=== PATIENT | female | born 1945 | race Caucasian/White ===

== ENCOUNTER → 2017-02-19 | Outpatient (CLI) | payer OTHER ==
[~2017-02-19] MED LIST: ASPIRIN EC325 M1 PO; ASPIRIN325 PO; CALCIUM 500 +1 EAC5 PO; CELEBREX 200 M200 M1 PO; CELEBREX 200 M200 MG PO; CEPHALEXIN 500500 M2 PO; COUMADIN 10MG T10 M1 PO; CRESTOR10 MG PO; CRESTOR20 MG PO; DILTIAZEM 24HR180 MG PO; DILTIAZEM 24HR360 MG PO; DILTIAZEM ER360 MG PO; FISH OIL 1,001000 MG PO; FLECAINIDE ACET50 M2 PO; GEMFIBROZIL 60600 MG PO; HYDROCHLOROTHIA25 M1 PO; HYDROCHLOROTHIA25 M2 PO; HYDROCODON-ACE1 EAC7 PO; LABETALOL 100100 MG PO; LISINOPRIL20 MG PO; LORTAB 5-500 T1 EAC1 PO; LOSARTAN-HCTZ1 EACH PO; MELOXICAM15 MG PO; MULTIVITAMINS; OCUVITE TABLET1 EAC1 PO; OMEPRAZOLE 20 M20 MG PO; OMEPRAZOLE20 M2 PO; OSTEO BI FLEX PO; POTASSIUM CHLO10 ME1 PO; PRADAXA150 MG PO; PRAVACHOL40 MG PO; PREDNISONE 5 MG5 M1 PO; PROVENTIL; PULMICORT FLE180 MCG IH; PULMICORT FLEX90 MCG IH; SPIRIVA INH; SYNTHROID100 MCG PO; SYNTHROID125 MCG PO; TAMBOCOR 100 M100 M1 PO; VIACTIV CAPLET1 EACH PO; VITAMIN D35000 UNI1 PO
== END ==
LOC: RAD 11:31
DX: M53.3 Sacrococcygeal disorders, not elsewhere classified (principal)

== ENCOUNTER → 2017-06-12 | Outpatient (CLI) | payer OTHER | LOC: RAD 06-03 13:31 | DX: R06.02 Shortness of breath (principal) ==

== ENCOUNTER → 2017-08-04 | Outpatient (CLI) | payer OTHER | LOC: MRI 09:05 | DX: S83.241A Other tear of medial meniscus, current injury, right knee, initial encounter (principal); M25.461 Effusion, right knee; X58.XXXA Exposure to other specified factors, initial encounter; Y93.89 Activity, other specified; Y92.89 Other specified places as the place of occurrence of the external cause; Y99.8 Other external cause status ==

== ENCOUNTER 2017-08-26 05:29 | Day surgery (SDC) | payer OTHER ==
[~2017-08-26] VITALS: Ht 154.9 cm; Wt 93.0 kg
--- NOTE | ~2017-08-26 | S ---
[facility] [place] [address] SURGICAL PATH RPT PROCEDURE Name: SHAWNEE AVALOS Room #: DEP [facility].R.#: [id number] Admission: 08/26/17 Date of : 43 Discharge: 08/26/17 Report #: [id number] Path Case #: [id number] PATHOLOGY REPORT COLLECTION DATE: 08/26/2017 RECEIVED DATE: 08/26/2017 SUBMITTING PHYS: Dr. Darrell Carter OTHER PHYS: Dr. Hector Hurd SPECIMEN(S) RECEIVED: A.Left chest mass * * * * * * * * * * * * FINAL DIAGNOSIS: Left chest wall mass, excision: - Mature adipose tissue compatible with a lipoma. (IUV:db; 08/28/2017) PATHOLOGIST: Elvi Hallman M.D. REPORT ELECTRONICALLY SIGNED BY: Elvi Hallman M.D. DATE/TIME: 08/28/2017 14:34 * * * * * * * * * * * * GROSS PATHOLOGY: The specimen is received in formalin labeled "April, left chest mass". Received are multiple segments of bright yellow lobulated tissue measuring 6.5 x 4.7 x 2.9 cm in aggregate dimensions. Sectioning reveals bright yellow, lobulated cut surfaces with no grossly distinct nodules or lesions. The specimen is submitted representatively in cassette A1. (CAA; 08/27/2017) CLINICAL HISTORY: Left chest mass INITIAL CPT CODE(S): 49583 Professional services performed by [facility] at [facility] [address] [place] [address] Technical services performed by [facility] at [address] [place] [id number]. [facility] [address] [place] [address] SURGICAL PATH RPT PROCEDURE Name: SHAWNEE AVALOS Room #: DEP [facility] [place]#: [id number] Admission: 08/26/17 Date of : 43 Discharge: 08/26/17 Report #: [id number] Path Case #: [id number] [facility] [address] [place] [id number] PHONE: [phone] DIRECTOR: Melo Stevens M.D. * * * END OF REPORT * * *
--- NOTE | ~2017-08-26 | O ---
[facility] [place] [address] OPERATIVE REPORT Name: SHAWNEE AVALOS Room #: DEP [facility]..#: [id number] Admission: 08/26/17 Attend Phys: Darrell Carter MD Discharge: 08/26/17 Date of : 43 Report #: [id number] THIS REPORT FOR: //name// CC: Darrell Hurd MD PREOPERATIVE DIAGNOSIS: Mass, left lower chest. POSTOPERATIVE DIAGNOSIS: Mass/lipoma left lower chest, symptomatic. PROCEDURES PERFORMED: Excision of left lower chest mass/lipoma. ANESTHESIA: IV sedation, local, 0.25% Marcaine. SURGEON: Darrell Carter MD COMPLICATIONS: None. ESTIMATED BLOOD LOSS: 5 mL. PROCEDURE NOTE: With the patient in the supine position, the left chest is prepped and draped in sterile fashion. IV sedation was given. IV preoperative antibiotic was given. Timeout was performed. 0.25% Marcaine was used to anesthetize the skin and subcutaneous tissue. A transverse incision slightly oblique was made over the mass. This is about a 4 cm incision. After incising through the skin and subcutaneous tissue, the superficial fascia was entered. There is prominent fatty tissue underneath this fascia. This was dissected free. In the lower aspect from the incision, there was a distinct lobulated fat present. I also dissected superiorly to remove that area also. This also contained a distinct lumpy fatty tissue. The total area is about 4 cm. There is no remaining prominent fatty tissue identified. Irrigation was performed. The subcutaneous tissue was closed with 3-0 PDS and the skin was closed with 5-0 PDS. Steri-Strip, 4 x 4 and OpSite used for dressing. The patient tolerated the procedure well. By: [id number] Darrell Carter MD /nt
[~2017-08-26 05:29] MED LIST changes: +CO Q-10100 MG PO; +LEVALBUTER1.25 MG/0. INH; +OSTEO BI-FLEX1 EAC1 PO; +SYNTHROID88 MCG PO; +[UNRECOGNIZED DRUG - OTHER] PO
[2017-08-26 11:33] LABS: HEMATOCRIT 41.2 % (37.0-47.0); HEMOGLOBIN 13.8 gm/dL (12.0-15.0)
[2017-08-26 11:59] LABS: CALCIUM 9.3 mg/dL (8.5-10.1); CREATININE 1.4 mg/dL (0.6-1.0); POTASSIUM 4.7 mmol/L (3.5-5.1)
[2017-08-26 12:00] VITALS: BP 134/94
[2017-08-26] MEDS ORDERED: NORCO 5-325 TA1 EACH PO (13:30)
== END 2017-08-26 14:15 | disposition home or self-care (01) ==
LOC: TBA 05:29 → OR 05:29
PROVIDERS: Surgery
DX: D17.1 Benign lipomatous neoplasm of skin and subcutaneous tissue of trunk (principal); J44.9 Chronic obstructive pulmonary disease, unspecified; I10 Essential (primary) hypertension; I48.91 Unspecified atrial fibrillation; K21.9 Gastro-esophageal reflux disease without esophagitis; Z95.0 Presence of cardiac pacemaker; Z85.828 Personal history of other malignant neoplasm of skin; Z85.118 Personal history of other malignant neoplasm of bronchus and lung; Z96.652 Presence of left artificial knee joint; Z98.41 Cataract extraction status, right eye; Z87.891 Personal history of nicotine dependence; Z98.42 Cataract extraction status, left eye; Z98.890 Other specified postprocedural states; Z88.0 Allergy status to penicillin; Z88.8 Allergy status to other drugs, medicaments and biological substances; Z79.899 Other long term (current) drug therapy; Z79.82 Long term (current) use of aspirin
CPT/HCPCS: 50010; 50101; 50386; 56524; 56525; 62110; 62850; 70005

== ENCOUNTER → 2018-04-13 | Outpatient (CLI) | payer OTHER ==
[~2018-04-13] MED LIST changes: +NORCO 5-325 TA1 EACH PO
[2018-04-13 08:19] LABS: HEMATOCRIT 42.2 % (37.0-47.0); HEMOGLOBIN 14.2 gm/dL (12.0-15.0); MCH 30.3 pg (26.0-34.0); MCHC 33.7 g/dL (28.0-37.0); MCV 89.9 fL (80.0-100.0); RBC 4.7 mil/uL (4.20-5.00); RDW 14.2 % (10.5-14.5); WBC 6.1 thou/uL (4.0-11.0)
[2018-04-13 08:50] LABS: ALBUMIN 3.9 g/dL (3.4-5.0); CALCIUM 8.9 mg/dL (8.5-10.1); CREATININE 1.4 mg/dL (0.6-1.0); TOTAL BILIRUBIN 0.5 mg/dL (<0.1-1.0); TOTAL PROTEIN 6.6 g/dL (6.4-8.2)
== END ==
LOC: CAT 07:59
PROVIDERS: Internal Medicine Cardiovascular Disease
DX: I48.91 Unspecified atrial fibrillation (principal); I25.10 Atherosclerotic heart disease of native coronary artery without angina pectoris; I71.2 Thoracic aortic aneurysm, without rupture; M47.894 Other spondylosis, thoracic region

== ENCOUNTER 2018-04-20 06:49 | Observation (INO) | payer OTHER ==
[~2018-04-20] VITALS: Ht 154.9 cm; Wt 102.5 kg
--- NOTE | ~2018-04-20 | D ---
[facility] [place] [address] DISCHARGE SUMMARY Name: SHAWNEE AVALOS Room #: 200-I [facility] Mohit Talamantes#: [id number] Admission: 04/20/18 Attend Phys: Pradip De Leon MD Discharge: 04/21/18 Date of : 43 Report #: [id number] THIS REPORT FOR: //name// CC: Pradip Hurd DISCHARGE DIAGNOSES: 1. Paroxysmal atrial fibrillation. 2. Sick sinus syndrome. 3. Prior lung cancer. HISTORY: The patient is a 73-year-old with a history of paroxysmal atrial fibrillation. A few years ago, I had a CT scan performed on her in anticipation of an AFib ablation and I diagnosed her with lung cancer. She underwent surgical resection of her left lower lobe by CT surgeon at [facility] and at that time, she also underwent left atrial appendage ligation. Postoperative course was complicated by paroxysmal AFib and sick sinus syndrome and therefore, she underwent pacemaker implantation at that time. Her AFib has worsened over the past year to year and a half despite flecainide therapy and therefore she is here for an ablation. She underwent successful AFib ablation with isolation of her pulmonary veins. There were no intraprocedural complications. HOSPITAL COURSE: The patient was monitored in the CCU overnight. On the day of discharge, she was doing well without any complaints. She denied chest pain, shortness of breath, fevers or chills. PHYSICAL EXAMINATION: GENERAL: She was in no acute distress. HEART: Regular rate and rhythm. No murmurs, rubs, gallops. LUNGS: Clear to auscultation bilaterally. ABDOMEN: Soft, nontender. EXTREMITIES: There is no clubbing, cyanosis, edema and her groin was healing nicely. On telemetry, she remained in atrial paced rhythm with no evidence of AFib. As such, she was deemed stable for discharge home. She will go home on her same home medications, which include flecainide 150 mg a day, beta-moraima, diltiazem and Pradaxa therapy. I will see her back in 3 months. Discharge instructions were reviewed. <ELECTRONICALLY SIGNED> By: Pradip De Leon MD 04/23/18 0853 [id number] Pradip De Leon MD /nt
--- NOTE | ~2018-04-20 | P ---
[facility] [place] [address] PROCEDURE REPORT Name: SHAWNEE AVALOS Room #: 200-I [facility] Mohit Talamantes#: [id number] Admission: 04/20/18 Attend Phys: Pradip De Leon MD Discharge: 04/21/18 Date of : 43 Report #: [id number] THIS REPORT FOR: //name// CC: Pradip Hyman Hector Vannessa DATE OF SERVICE: 04/20/2018 PREOPERATIVE DIAGNOSES: 1. Paroxysmal atrial fibrillation. 2. Sick sinus syndrome. 3. Prior lung cancer status post resection. PROCEDURES PERFORMED: 1. Atrial fibrillation, CPT code 42517. 2. 3D mapping, CPT code 94672. 3. Intracardiac echo, CPT code 52190. 4. Pacemaker reprogramming, CPT code 20755. HISTORY: The patient is a 73-year-old with a history of COPD and paroxysmal atrial fibrillation. Several years ago, in preparation for an AFib ablation, she underwent a CT scan, which showed evidence of lung cancer. She underwent successful surgical resection of her left lower lobe and at that time she underwent left atrial appendage ligation. This was performed at [facility] and she did have postoperative atrial fibrillation and sick sinus syndrome and therefore underwent a dual chamber [employer] pacemaker implantation. Over the past year, her atrial fibrillation has worsened despite increasing doses of flecainide and therefore she is here for an AFib ablation. ANESTHESIA: The patient underwent general anesthesia with no anesthesia related complications. DESCRIPTION OF PROCEDURE: The patient underwent informed consent. We discussed the details of the procedure including the risks, which include but are not limited to bleeding, vascular damage, cardiac perforation as well as stroke or OK. She understood these risks and is willing to proceed. As such, she was brought to the EP laboratory in a fasting and sedated state, prepped and draped in a sterile fashion, and she was placed under general anesthesia. Her pacemaker was interrogated and reprogrammed for the ablation. Of note, I did repeat a cardiac CT scan prior to this ablation, which did show evidence of the left atrial appendage ligation. 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 As such, I obtained access to the right femoral vein x 3, placing an 8-Peruvian, 9-Peruvian and 7-Peruvian short sheath under modified Seldinger technique and under fluoroscopy I placed a decapolar catheter easily in the coronary sinus and an ICE catheter into the [facility] [address] [place] [address] PROCEDURE REPORT Name: SHAWNEE AVALOS Room #: 200-I [facility] Mohit Talamantes#: [id number] Admission: 04/20/18 Attend Phys: Pradip De Leon MD Discharge: 04/21/18 Date of : 43 Report #: [id number] right atrium. Next, using intracardiac ultrasound, I created a 3D geometry of the left atrium using [employer] and then I merged this with the cardiac CT scan. As noted on the CT scan, there was a small stump left for the left inferior pulmonary vein. Next, the patient was systemically heparinized and I performed a transseptal using an SL1 sheath and a Belmont needle. This was straightforward and I crossed easily. Next, I placed a Lasso and took baseline measurements of the 4 pulmonary veins including the left inferior vein stump. Next, I exchanged the SL1 sheath for the cryo sheath and placed the cryoballoon into the left atrium. I performed 2 freezes in the left superior pulmonary vein. The left superior pulmonary vein isolated after the second freeze at 82 seconds. I then turned my attention to the left inferior pulmonary vein stump. There were some atrial signals at this site, so I performed initially 3 ablation lesions at 240 milliseconds. There was diminishment of these electrical signals, but it did not appear that it was completely isolated. I then turned my attention to the right superior pulmonary vein and I performed two 4-minute freezes and this vein was isolated. I then turned my attention to the right inferior pulmonary vein and I performed a single 180-second freeze. This vein isolated within 38 seconds of the first freeze. Once again, I re-interrogated all the veins and they remained isolated. I performed voltage mapping and all the veins appeared to be isolated. I did do an additional 2 freezes in the left inferior stump trying to just isolate or decrease the electrical signals from around this vein. This vessel did not completely isolate, but I doubt that this was the culprit and therefore this vein was left as is. As such, all vessels appeared to be isolated. The procedure was without complications. With intracardiac echo I verified there was no pericardial effusion. The patient received systemic protamine and once the ACT was within acceptable range, catheters and sheaths were pulled and hemostasis was obtained. The pacemaker was re-interrogated and found to be functioning normally and was reprogrammed to its original settings. CONCLUSIONS: 1. Successful atrial fibrillation ablation with isolation of the left superior, right superior and right inferior pulmonary veins. 2. Several freezes performed in the left inferior stump, but not complete isolation. Given the lack of significant signals in this spot, I decided against further ablation given this vessel's unknown clinical significance. <ELECTRONICALLY SIGNED> By: Pradip De Leon MD 04/23/18 0853 [id number] 12 MD abraham Peterson
[2018-04-20 07:19] VITALS: BP 133/78
[2018-04-20 07:24] LABS: HEMATOCRIT 42.5 % (37.0-47.0); HEMOGLOBIN 14.7 gm/dL (12.0-15.0); MCH 30.6 pg (26.0-34.0); MCHC 34.6 g/dL (28.0-37.0); MCV 88.5 fL (80.0-100.0); PLATELET COUNT 244 thou/uL (150-400); WBC 6.2 thou/uL (4.0-11.0)
[2018-04-20 07:33] LABS: CALCIUM 9.4 mg/dL (8.5-10.1); CREATININE 1.3 mg/dL (0.6-1.0); POTASSIUM 4.1 mmol/L (3.5-5.1)
[2018-04-20 07:36] LABS: APTT 32.2 Seconds (24.5-32.8); PROTIME 10.5 Seconds (9.3-11.4)
[2018-04-20] MEDS ORDERED: CARTIA XT240 M1 PO (07:37)
[2018-04-20 07:39] LABS: ALBUMIN 3.8 g/dL (3.4-5.0); TOTAL BILIRUBIN 0.5 mg/dL (<0.1-1.0); TOTAL PROTEIN 7.1 g/dL (6.4-8.2)
[2018-04-20] MEDS ORDERED: LEVALBUTER1.25 MG/0. INH (07:40)
[2018-04-20] MEDS ORDERED: [UNRECOGNIZED DRUG - OTHER] TRANSDERM (07:43)
[2018-04-20] MEDS ORDERED: SYNTHROID100 MC1 PO (07:45)
[2018-04-20] MEDS ORDERED: SPIRIVA INH (07:46)
[2018-04-20 08:51] LABS: ABSOLUTE NEUTROPHILS 4.3 thou/uL (1.4-8.2); PLATELET ESTIMATE NORMAL
[2018-04-20 19:30] VITALS: BP 133/69
[2018-04-21 00:03] VITALS: BP 105/67
[2018-04-21 05:36] VITALS: BP 118/53
[2018-04-21 06:57] VITALS: BP 111/52
[2018-04-21 10:25] VITALS: BP 128/62
== END 2018-04-21 11:11 | disposition home or self-care (01) ==
LOC: CATH 06:49 → 2N 16:13 → ENTRNSPT 04-21 10:36 → EDTRNSPTSTS 04-21 10:40 → 2N 04-21 11:11
PROVIDERS: Internal Medicine Cardiovascular Disease
DX: I48.0 Paroxysmal atrial fibrillation (principal); J43.8 Other emphysema; I49.5 Sick sinus syndrome; M19.90 Unspecified osteoarthritis, unspecified site; K21.9 Gastro-esophageal reflux disease without esophagitis; E78.5 Hyperlipidemia, unspecified; E07.9 Disorder of thyroid, unspecified; J44.9 Chronic obstructive pulmonary disease, unspecified; I12.9 Hypertensive chronic kidney disease with stage 1 through stage 4 chronic kidney disease, or unspecified chronic kidney disease; N18.9 Chronic kidney disease, unspecified; Z90.89 Acquired absence of other organs; Z98.890 Other specified postprocedural states; Z87.891 Personal history of nicotine dependence; Z72.89 Other problems related to lifestyle; Z85.118 Personal history of other malignant neoplasm of bronchus and lung; Z95.0 Presence of cardiac pacemaker
CPT/HCPCS: 62110; 62900; 65020; 65040; 70005

== ENCOUNTER → 2019-11-25 | Outpatient (CLI) | payer OTHER ==
[~2019-11-25] MED LIST changes: +CARTIA XT240 M1 PO; +SYNTHROID100 MC1 PO; +[UNRECOGNIZED DRUG - OTHER] TRANSDERM
== END ==
LOC: SJCVC 16:49
DX: Z45.018 Encounter for adjustment and management of other part of cardiac pacemaker (principal); R94.31 Abnormal electrocardiogram [ECG] [EKG]; I48.0 Paroxysmal atrial fibrillation; I48.3 Typical atrial flutter; I49.5 Sick sinus syndrome; M19.90 Unspecified osteoarthritis, unspecified site; J44.9 Chronic obstructive pulmonary disease, unspecified; K21.9 Gastro-esophageal reflux disease without esophagitis; I10 Essential (primary) hypertension; E78.5 Hyperlipidemia, unspecified; G47.33 Obstructive sleep apnea (adult) (pediatric); Z90.49 Acquired absence of other specified parts of digestive tract; Z96.652 Presence of left artificial knee joint; Z79.899 Other long term (current) drug therapy; Z87.891 Personal history of nicotine dependence

== ENCOUNTER → 2020-10-17 | Outpatient (CLI) | payer OTHER | LOC: SJCVCIMAG 09:03 | PROVIDERS: ATTEND Internal Medicine Cardiovascular Disease | DX: I44.0 Atrioventricular block, first degree (principal); I49.3 Ventricular premature depolarization; R94.31 Abnormal electrocardiogram [ECG] [EKG]; I48.0 Paroxysmal atrial fibrillation; J43.9 Emphysema, unspecified; I12.9 Hypertensive chronic kidney disease with stage 1 through stage 4 chronic kidney disease, or unspecified chronic kidney disease; N18.9 Chronic kidney disease, unspecified; K21.9 Gastro-esophageal reflux disease without esophagitis; Z95.0 Presence of cardiac pacemaker; Z79.899 Other long term (current) drug therapy; Z87.891 Personal history of nicotine dependence ==

== ENCOUNTER → 2021-10-23 | Outpatient (CLI) | payer OTHER | LOC: SJCVC 12:48 | PROVIDERS: ATTEND Internal Medicine Cardiovascular Disease | DX: R94.31 Abnormal electrocardiogram [ECG] [EKG] (principal); I49.5 Sick sinus syndrome; I48.3 Typical atrial flutter; I48.20 Chronic atrial fibrillation, unspecified; J43.9 Emphysema, unspecified; I10 Essential (primary) hypertension; I48.0 Paroxysmal atrial fibrillation; K21.9 Gastro-esophageal reflux disease without esophagitis; I12.9 Hypertensive chronic kidney disease with stage 1 through stage 4 chronic kidney disease, or unspecified chronic kidney disease; N18.9 Chronic kidney disease, unspecified; E78.5 Hyperlipidemia, unspecified; G47.33 Obstructive sleep apnea (adult) (pediatric); Z88.0 Allergy status to penicillin; Z88.1 Allergy status to other antibiotic agents; Z88.8 Allergy status to other drugs, medicaments and biological substances; Z79.899 Other long term (current) drug therapy; Z87.891 Personal history of nicotine dependence; Z72.89 Other problems related to lifestyle; Z95.0 Presence of cardiac pacemaker ==